=== PATIENT | female | born 1955 | race Caucasian/White ===

== ENCOUNTER 2020-05-12 10:18 | Inpatient (IN) | payer MEDICAID, SELFPAY ==
[~2020-05-12] VITALS: Ht 175.3 cm; Wt 98.9 kg
[2020-05-12 10:22] VITALS: BP_SYST 108
[2020-05-12 12:30] LABS: BASOPHILS % (AUTO) 0.3 % (0.0-2.0); EOSINOPHILS # (AUTO) 0.2 K/uL (0.0-0.4); EOSINOPHILS % (AUTO) 4.9 % (0.0-4.0); HEMOGLOBIN 9.3 g/dL (12.0-16.0); LYMPHOCYTES # (AUTO) 0.5 K/uL (1.0-5.5); LYMPHOCYTES % (AUTO) 14.1 % (20.5-51.5); MEAN CORPUSCULAR HEMOGLOBIN 36 pg (27-31); MEAN CORPUSCULAR HGB CONC 33 % (32-36); MEAN CORPUSCULAR VOLUME 109 fL (79.0-98.0); MONOCYTES # (AUTO) 0.7 K/uL (0.0-1.0); MONOCYTES % (AUTO) 18.1 % (1.7-9.3); NEUTROPHILS # (AUTO) 2.3 K/uL (1.8-7.7); NEUTROPHILS % (AUTO) 62.6 % (40.0-70.0); PLATELET COUNT (AUTO) 80 K/uL (130-430); RED BLOOD CELL COUNT(AUTO) 2.56 MIL/uL (4.2-6.2); RED CELL DISTRIBUTION WIDTH 18.4 % (9.0-15.0); WHITE BLOOD COUNT (AUTO) 3.6 K/uL (4.8-10.8)
[2020-05-12 12:45] LABS: CALCIUM 8.7 mg/dL (8.4-11.0); CREATININE 2.36 mg/dL (0.55-1.30)
[2020-05-12 12:47] LABS: INR 1.9 (0.8-1.2)
[2020-05-12 12:52] LABS: ALBUMIN 1.4 g/dL (3.4-4.8); TOTAL BILIRUBIN 8.5 mg/dL (0.0-1.0)
[2020-05-12 12:58] LABS: PROTHROMBIN TIME 19.2 SECS (9.5-12.5)
[2020-05-12] MEDS ORDERED: HALOPERIDOL LACTATE 5 MG/ML VIAL IM ONE (13:00)
[2020-05-12 13:03] LABS: BILIRUBIN,URINE 1+ (NEGATIVE); CLARITY/URINE CLEAR (CLEAR); COLOR,URINE YELLOW (YELLOW); GLUCOSE,URINE NEGATIVE (NEGATIVE); KETONES,URINE TRACE (NEGATIVE); LEUKOCYTE ESTERASE ,URINE NEGATIVE (NEGATIVE); NITRITE, URINE NEGATIVE (NEGATIVE); PROTEIN URINE NEGATIVE (NEGATIVE)
[2020-05-12 13:48] LABS: BLOOD, URINE TRACE (NEGATIVE); UROBILINOGEN,URINE >=8 (0.2-1.0)
[2020-05-12 13:57] LABS: BACTERIA,URINE FEW /HPF (None Seen); WBC,URINE 0-3 /HPF (0-3)
[2020-05-12] MEDS ORDERED: LACTULOSE 20 GM/30 ML UDC PO ONE (14:45)
[2020-05-12] MEDS ORDERED: LACT10SO6 PO (16:01)
[2020-05-12] MEDS ORDERED: FOLI-43 PO (16:01)
[2020-05-12] MEDS ORDERED: RIFA550T5 PO (16:01)
[2020-05-12] MEDS ORDERED: CAT.1 PO (16:01)
[2020-05-12] MEDS ORDERED: FER300L PO (16:01)
[2020-05-12] MEDS ORDERED: LORA-258 PO (16:01)
[2020-05-12] MEDS ORDERED: ONDA4TAB5 PO (16:01)
[2020-05-12] MEDS ORDERED: CELE200C PO (16:01)
[2020-05-12] MEDS ORDERED: VANC250C11 PO (16:01)
[2020-05-12] MEDS ORDERED: FURO-150 PO (16:01)
[2020-05-12] MEDS ORDERED: DOCU-144 PO (16:01)
[2020-05-12] MEDS: D5/0.45 NS 1,000 ML IV SCH (16:25)
[2020-05-12 18:05] VITALS: BP_SYST 98
[2020-05-12 20:00] VITALS: BP_SYST 107
[2020-05-13] VITALS: BP_SYST 129
[2020-05-13] MEDS: LORazepam 1 MG TABLET PO PRN (00:38)
[2020-05-13 07:31] LABS: BASOPHILS # (AUTO) 0.1 K/uL (0.0-0.2); BASOPHILS % (AUTO) 4.3 % (0.0-2.0); EOSINOPHILS % (AUTO) 1.2 % (0.0-4.0); HEMATOCRIT 26.3 % (36-48); LYMPHOCYTES # (AUTO) 0.4 K/uL (1.0-5.5); LYMPHOCYTES % (AUTO) 13.2 % (20.5-51.5); MEAN CORPUSCULAR HEMOGLOBIN 36 pg (27-31); MEAN CORPUSCULAR HGB CONC 34 % (32-36); MEAN CORPUSCULAR VOLUME 107 fL (79.0-98.0); MONOCYTES # (AUTO) 0.3 K/uL (0.0-1.0); MONOCYTES % (AUTO) 10.1 % (1.7-9.3); NEUTROPHILS # (AUTO) 2.2 K/uL (1.8-7.7); NEUTROPHILS % (AUTO) 71.2 % (40.0-70.0); PLATELET COUNT (AUTO) 81 K/uL (130-430); RED BLOOD CELL COUNT(AUTO) 2.47 MIL/uL (4.2-6.2); RED CELL DISTRIBUTION WIDTH 17.6 % (9.0-15.0); WHITE BLOOD COUNT (AUTO) 3.1 K/uL (4.8-10.8)
[2020-05-13 07:36] LABS: PROTHROMBIN TIME 20.4 SECS (9.5-12.5)
[2020-05-13 07:43] LABS: ALBUMIN 1.4 g/dL (3.4-4.8); CALCIUM 8.6 mg/dL (8.4-11.0); CREATININE 2.05 mg/dL (0.55-1.30); POTASSIUM 4.9 mmol/L (3.5-5.1); TOTAL BILIRUBIN 8.4 mg/dL (0.0-1.0)
[2020-05-13 08:05] VITALS: BP_SYST 111
[2020-05-13] MEDS: LORazepam 2 MG/ML VIAL IVP PRN (11:38)
[2020-05-13 12:47] VITALS: BP_SYST 113
[2020-05-13 16:23] VITALS: BP_SYST 118
[2020-05-13] MEDS: D5/0.45 NS 1,000 ML IV SCH (19:00)
[2020-05-13 20:12] VITALS: BP_SYST 139
[2020-05-14 00:46] VITALS: BP_SYST 139
[2020-05-14] MEDS: LORazepam 2 MG/ML VIAL IVP PRN ×4 (01:34→22:06)
[2020-05-14 06:45] LABS: ALBUMIN 1.6 g/dL (3.4-4.8); CALCIUM 8.8 mg/dL (8.4-11.0); CREATININE 2.09 mg/dL (0.55-1.30); POTASSIUM 4.2 mmol/L (3.5-5.1)
[2020-05-14] MEDS: D5/0.45 NS 1,000 ML IV SCH ×2 (07:31→22:06)
[2020-05-14 08:00] VITALS: BP_SYST 142
[2020-05-14 09:23] LABS: HEMATOCRIT 27.7 % (36-48); HEMOGLOBIN 9.3 g/dL (12.0-16.0); MEAN CORPUSCULAR HEMOGLOBIN 36 pg (27-31); MEAN CORPUSCULAR HGB CONC 34 % (32-36); MEAN CORPUSCULAR VOLUME 108 fL (79.0-98.0); RED BLOOD CELL COUNT(AUTO) 2.56 MIL/uL (4.2-6.2); RED CELL DISTRIBUTION WIDTH 17.6 % (9.0-15.0); WHITE BLOOD COUNT (AUTO) 3.8 K/uL (4.8-10.8)
[2020-05-14 09:33] LABS: PLATELET COUNT (AUTO) 77 K/uL (130-430)
[2020-05-14 10:44] LABS: BASOPHILS % (MANUAL) 0 % (0-2); EOSINOPHILS % (MANUAL) 2 % (0-7); LYMPHOCYTES % (MANUAL) 21 % (20-46); MONOCYTES % (MANUAL) 9 % (0-11)
[2020-05-14 12:03] VITALS: BP_SYST 142
[2020-05-14 16:17] VITALS: BP_SYST 141
[2020-05-14 16:28] LABS: INR 2.1 (0.8-1.2)
[2020-05-14 17:32] LABS: PROTHROMBIN TIME 21.2 SECS (9.5-12.5)
[2020-05-14 18:01] LABS: TOTAL IRON BIND. CAPACITY 134 ug/dL (250-450)
[2020-05-14 19:45] VITALS: BP_SYST 148
[2020-05-14] MEDS: QUEtiapine FUMARATE 25 MG TABLET PO SCH (21:36)
[2020-05-15 00:44] VITALS: BP_SYST 150
[2020-05-15 06:13] LABS: BASOPHILS % (AUTO) 0.5 % (0.0-2.0); EOSINOPHILS # (AUTO) 0.1 K/uL (0.0-0.4); EOSINOPHILS % (AUTO) 3.7 % (0.0-4.0); HEMATOCRIT 26.1 % (36-48); HEMOGLOBIN 8.7 g/dL (12.0-16.0); LYMPHOCYTES # (AUTO) 0.4 K/uL (1.0-5.5); LYMPHOCYTES % (AUTO) 10.2 % (20.5-51.5); MEAN CORPUSCULAR HEMOGLOBIN 36 pg (27-31); MEAN CORPUSCULAR HGB CONC 33 % (32-36); MEAN CORPUSCULAR VOLUME 107 fL (79.0-98.0); MONOCYTES # (AUTO) 0.3 K/uL (0.0-1.0); MONOCYTES % (AUTO) 8.2 % (1.7-9.3); NEUTROPHILS # (AUTO) 3.1 K/uL (1.8-7.7); NEUTROPHILS % (AUTO) 77.4 % (40.0-70.0); PLATELET COUNT (AUTO) 70 K/uL (130-430); RED BLOOD CELL COUNT(AUTO) 2.44 MIL/uL (4.2-6.2); RED CELL DISTRIBUTION WIDTH 17.3 % (9.0-15.0)
[2020-05-15 06:47] LABS: INR 2.1 (0.8-1.2); PROTHROMBIN TIME 21.5 SECS (9.5-12.5)
[2020-05-15 06:51] LABS: ALBUMIN 1.4 g/dL (3.4-4.8); CALCIUM 8.2 mg/dL (8.4-11.0); CREATININE 1.71 mg/dL (0.55-1.30); TOTAL BILIRUBIN 8.3 mg/dL (0.0-1.0)
[2020-05-15 07:08] LABS: TOTAL IRON BIND. CAPACITY 119 ug/dL (250-450)
[2020-05-15 08:00] VITALS: BP_SYST 132
[2020-05-15] MEDS: QUEtiapine FUMARATE 25 MG TABLET PO SCH ×2 (08:02→21:33)
[2020-05-15 11:11] LABS: HEPATITIS A AB, IgM Negative (Negative); HEPATITIS B CORE AB, IgM Negative (Negative); HEPATITIS B SURFACE AG Negative (Negative)
[2020-05-15 12:01] VITALS: BP_SYST 144
[2020-05-15 12:06] LABS: AFP, TUMOR MARKER 1.8 ng/mL (0.0-8.3)
[2020-05-15 16:15] VITALS: BP_SYST 154
[2020-05-15] MEDS: LORazepam 2 MG/ML VIAL IVP PRN (16:50)
[2020-05-15] MEDS: D5/0.45 NS 1,000 ML IV SCH (16:50)
[2020-05-15 20:30] VITALS: BP_SYST 161
[2020-05-16] VITALS (7 sets, daily range): BP systolic 121–165
[2020-05-16] MEDS: LORazepam 2 MG/ML VIAL IVP PRN (04:28)
[2020-05-16] MEDS: ALBUTEROL SULFATE 0.083% 2.5 MG/3 ML VIAL.NEB INH SCH ×5 (08:15→23:38)
[2020-05-16 08:29] LABS: AFP, TUMOR MARKER 1.9 ng/mL (0.0-8.3)
[2020-05-16] MEDS ORDERED: ALBUTEROL SULFATE 0.083% 2.5 MG/3 ML VIAL.NEB INH ONE (09:28)
[2020-05-16 09:30] LABS: CALCIUM 8.3 mg/dL (8.4-11.0); CREATININE 1.57 mg/dL (0.55-1.30); POTASSIUM 4.2 mmol/L (3.5-5.1)
[2020-05-16 09:34] LABS: BASOPHILS # (AUTO) 0.1 K/uL (0.0-0.2); BASOPHILS % (AUTO) 1.2 % (0.0-2.0); EOSINOPHILS # (AUTO) 0.2 K/uL (0.0-0.4); EOSINOPHILS % (AUTO) 5.1 % (0.0-4.0); HEMATOCRIT 31.3 % (36-48); HEMOGLOBIN 10.5 g/dL (12.0-16.0); LYMPHOCYTES # (AUTO) 0.4 K/uL (1.0-5.5); LYMPHOCYTES % (AUTO) 9.2 % (20.5-51.5); MEAN CORPUSCULAR HEMOGLOBIN 36 pg (27-31); MEAN CORPUSCULAR HGB CONC 34 % (32-36); MEAN CORPUSCULAR VOLUME 107 fL (79.0-98.0); MONOCYTES # (AUTO) 0.3 K/uL (0.0-1.0); MONOCYTES % (AUTO) 7.9 % (1.7-9.3); NEUTROPHILS # (AUTO) 3.3 K/uL (1.8-7.7); NEUTROPHILS % (AUTO) 76.6 % (40.0-70.0); PLATELET COUNT (AUTO) 97 K/uL (130-430); RED BLOOD CELL COUNT(AUTO) 2.92 MIL/uL (4.2-6.2); RED CELL DISTRIBUTION WIDTH 16.6 % (9.0-15.0); WHITE BLOOD COUNT (AUTO) 4.3 K/uL (4.8-10.8)
[2020-05-16] MEDS: QUEtiapine FUMARATE 25 MG TABLET PO SCH ×2 (10:24→20:50)
[2020-05-16] MEDS: LACTULOSE 20 GM/30 ML UDC PO SCH ×3 (10:24→17:49)
[2020-05-16] MEDS ORDERED: RIFAXIMIN 550 MG TABLET PO ONE (11:15)
[2020-05-16 12:56] LABS: CEA 10.1 ng/mL (0.0-4.7)
[2020-05-16] MEDS: D5/0.45 NS 1,000 ML IV SCH (20:46)
[2020-05-16] MEDS: RIFAXIMIN 550 MG TABLET PO SCH (20:46)
[2020-05-17] VITALS: BP_SYST 136
[2020-05-17 03:10] LABS: HEPATITIS A AB, IgM Negative (Negative); HEPATITIS B CORE AB, IgM Negative (Negative); HEPATITIS B SURFACE AG Negative (Negative)
[2020-05-17] MEDS: ALBUTEROL SULFATE 0.083% 2.5 MG/3 ML VIAL.NEB INH SCH ×6 (03:35→23:02)
[2020-05-17] MEDS: LACTULOSE 20 GM/30 ML UDC PO SCH ×5 (06:24→23:16)
[2020-05-17 08:15] VITALS: BP_SYST 144
[2020-05-17] MEDS: LORazepam 1 MG TABLET PO PRN ×2 (08:37→21:13)
[2020-05-17] MEDS: RIFAXIMIN 550 MG TABLET PO SCH ×2 (08:37→20:42)
[2020-05-17] MEDS: QUEtiapine FUMARATE 25 MG TABLET PO SCH ×3 (08:37→18:20)
[2020-05-17 11:25] VITALS: BP_SYST 137
[2020-05-17 13:06] LABS: ALPHA-1-ANTITRYPSIN, S 113 mg/dL (101-187); CERULOPLASMIN 18.2 mg/dL (19.0-39.0)
[2020-05-17] MEDS ORDERED: FUROSEMIDE 20 MG/2 ML VIAL IVP ONE (13:30)
[2020-05-17] MEDS: D5/0.45 NS 1,000 ML IV SCH (15:31)
[2020-05-17 15:53] VITALS: BP_SYST 147
[2020-05-17 20:00] VITALS: BP_SYST 135
[2020-05-18] VITALS: BP_SYST 146
[2020-05-18] MEDS: ALBUTEROL SULFATE 0.083% 2.5 MG/3 ML VIAL.NEB INH SCH ×3 (03:00→11:10)
[2020-05-18 04:00] VITALS: BP_SYST 159
[2020-05-18] MEDS: LACTULOSE 20 GM/30 ML UDC PO SCH ×4 (05:06→18:48)
[2020-05-18 06:26] LABS: BASOPHILS # (AUTO) 0.1 K/uL (0.0-0.2); EOSINOPHILS # (AUTO) 0.3 K/uL (0.0-0.4); EOSINOPHILS % (AUTO) 9.6 % (0.0-4.0); HEMATOCRIT 23.4 % (36-48); HEMOGLOBIN 7.8 g/dL (12.0-16.0); LYMPHOCYTES # (AUTO) 0.4 K/uL (1.0-5.5); LYMPHOCYTES % (AUTO) 10.5 % (20.5-51.5); MEAN CORPUSCULAR HEMOGLOBIN 36 pg (27-31); MEAN CORPUSCULAR HGB CONC 33 % (32-36); MEAN CORPUSCULAR VOLUME 108 fL (79.0-98.0); MONOCYTES # (AUTO) 0.4 K/uL (0.0-1.0); MONOCYTES % (AUTO) 11.3 % (1.7-9.3); NEUTROPHILS # (AUTO) 2.2 K/uL (1.8-7.7); NEUTROPHILS % (AUTO) 64.6 % (40.0-70.0); PLATELET COUNT (AUTO) 81 K/uL (130-430); RED BLOOD CELL COUNT(AUTO) 2.16 MIL/uL (4.2-6.2); RED CELL DISTRIBUTION WIDTH 16.6 % (9.0-15.0); WHITE BLOOD COUNT (AUTO) 3.4 K/uL (4.8-10.8)
[2020-05-18 07:50] VITALS: BP_SYST 160
[2020-05-18 08:08] LABS: CALCIUM 7.6 mg/dL (8.4-11.0); CREATININE 1.63 mg/dL (0.55-1.30)
[2020-05-18] MEDS: QUEtiapine FUMARATE 25 MG TABLET PO SCH ×3 (09:28→18:48)
[2020-05-18] MEDS: RIFAXIMIN 550 MG TABLET PO SCH ×2 (09:28→21:46)
[2020-05-18] MEDS: LORazepam 2 MG/ML VIAL IVP PRN ×2 (10:37→17:41)
[2020-05-18] MEDS ORDERED: FUROSEMIDE 40 MG/4 ML VIAL IVP ONE (11:30)
[2020-05-18 12:32] VITALS: BP_SYST 144
[2020-05-18] MEDS: D5/0.45 NS 1,000 ML IV SCH (12:44)
[2020-05-18] MEDS: IPRATROPIUM/ALBUTEROL SULFATE 3 ML AMPUL.NEB (DUONEB) INH SCH ×2 (13:00→20:34)
[2020-05-18] MEDS ORDERED: IPRATROPIUM/ALBUTEROL SULFATE 3 ML AMPUL.NEB (DUONEB) INH PRN (13:00)
[2020-05-18 16:49] VITALS: BP_SYST 137
[2020-05-18 20:01] VITALS: BP_SYST 145
[2020-05-19 01:04] VITALS: BP_SYST 138
[2020-05-19] MEDS: IPRATROPIUM/ALBUTEROL SULFATE 3 ML AMPUL.NEB (DUONEB) INH SCH ×4 (02:14→20:16)
[2020-05-19 07:39] LABS: EOSINOPHILS # (AUTO) 0.3 K/uL (0.0-0.4); EOSINOPHILS % (AUTO) 7.8 % (0.0-4.0); HEMATOCRIT 25.2 % (36-48); HEMOGLOBIN 8.5 g/dL (12.0-16.0); LYMPHOCYTES # (AUTO) 0.3 K/uL (1.0-5.5); LYMPHOCYTES % (AUTO) 6.5 % (20.5-51.5); MEAN CORPUSCULAR HEMOGLOBIN 36 pg (27-31); MEAN CORPUSCULAR HGB CONC 34 % (32-36); MEAN CORPUSCULAR VOLUME 107 fL (79.0-98.0); MONOCYTES # (AUTO) 0.6 K/uL (0.0-1.0); MONOCYTES % (AUTO) 13.8 % (1.7-9.3); NEUTROPHILS % (AUTO) 70.9 % (40.0-70.0); PLATELET COUNT (AUTO) 80 K/uL (130-430); RED BLOOD CELL COUNT(AUTO) 2.35 MIL/uL (4.2-6.2); RED CELL DISTRIBUTION WIDTH 17.4 % (9.0-15.0); WHITE BLOOD COUNT (AUTO) 4.2 K/uL (4.8-10.8)
[2020-05-19 08:16] VITALS: BP_SYST 126
[2020-05-19 08:17] LABS: ALBUMIN 1.3 g/dL (3.4-4.8); CALCIUM 7.5 mg/dL (8.4-11.0); CREATININE 1.54 mg/dL (0.55-1.30); POTASSIUM 3.6 mmol/L (3.5-5.1); TOTAL BILIRUBIN 6.6 mg/dL (0.0-1.0)
[2020-05-19] MEDS: RIFAXIMIN 550 MG TABLET PO SCH ×2 (08:31→21:24)
[2020-05-19] MEDS: QUEtiapine FUMARATE 25 MG TABLET PO SCH ×3 (08:31→18:49)
[2020-05-19 09:48] LABS: ANTI NUCLEAR AB WITH REFLEX Positive (Negative)
[2020-05-19 10:37] VITALS: BP_SYST 126
[2020-05-19 12:36] VITALS: BP_SYST 130
[2020-05-19] MEDS: LACTULOSE 20 GM/30 ML UDC PO SCH ×3 (13:24→18:50)
[2020-05-19 15:56] LABS: ANTI-SMOOTH MUSCLE AB 25 Units (0-19); FERRITIN 604 ng/mL (15-150)
[2020-05-19 15:57] LABS: ANTI-SMOOTH MUSCLE AB 24 Units (0-19); FERRITIN 569 ng/mL (15-150)
[2020-05-19 16:40] VITALS: BP_SYST 137
[2020-05-19 20:30] VITALS: BP_SYST 138
[2020-05-19] MEDS: LORazepam 1 MG TABLET PO PRN (21:24)
[2020-05-20 01:01] VITALS: BP_SYST 118
[2020-05-20] MEDS: IPRATROPIUM/ALBUTEROL SULFATE 3 ML AMPUL.NEB (DUONEB) INH SCH ×4 (01:27→20:40)
[2020-05-20] MEDS: D5/0.45 NS 1,000 ML IV SCH ×3 (02:00→21:12)
[2020-05-20] MEDS: LACTULOSE 20 GM/30 ML UDC PO SCH ×4 (02:01→16:49)
[2020-05-20] MEDS: traMADol HCL HCL 50 MG TABLET (ULTRAM) PO PRN (03:48)
[2020-05-20] MEDS: RIFAXIMIN 550 MG TABLET PO SCH ×2 (08:20→21:12)
[2020-05-20] MEDS: QUEtiapine FUMARATE 25 MG TABLET PO SCH ×3 (08:20→16:48)
[2020-05-20] MEDS: LORazepam 1 MG TABLET PO PRN (08:21)
[2020-05-20 11:35] VITALS: BP_SYST 127
[2020-05-20] MEDS: LORazepam 2 MG/ML VIAL IVP PRN ×2 (15:00→21:13)
[2020-05-20 15:30] VITALS: BP_SYST 145
[2020-05-20 20:00] VITALS: BP_SYST 147
[2020-05-21] MEDS: LACTULOSE 20 GM/30 ML UDC PO SCH ×5 (00:58→23:49)
[2020-05-21 01:10] VITALS: BP_SYST 123
[2020-05-21] MEDS: IPRATROPIUM/ALBUTEROL SULFATE 3 ML AMPUL.NEB (DUONEB) INH SCH ×4 (02:04→20:05)
[2020-05-21] MEDS: LORazepam 2 MG/ML VIAL IVP PRN ×3 (04:03→21:56)
[2020-05-21] MEDS: QUEtiapine FUMARATE 25 MG TABLET PO SCH ×3 (09:56→19:01)
[2020-05-21] MEDS: RIFAXIMIN 550 MG TABLET PO SCH ×2 (09:56→20:01)
[2020-05-21] MEDS: LORazepam 1 MG TABLET PO PRN (11:21)
[2020-05-21 11:28] VITALS: BP_SYST 133
[2020-05-21 15:38] VITALS: BP_SYST 158
[2020-05-21] MEDS: traMADol HCL HCL 50 MG TABLET (ULTRAM) PO PRN (15:48)
[2020-05-21 20:00] VITALS: BP_SYST 142
[2020-05-21] MEDS: D5/0.45 NS 1,000 ML IV SCH (20:01)
[2020-05-22] VITALS: BP_SYST 151
[2020-05-22] MEDS: IPRATROPIUM/ALBUTEROL SULFATE 3 ML AMPUL.NEB (DUONEB) INH SCH ×4 (01:00→19:34)
[2020-05-22] MEDS: LORazepam 2 MG/ML VIAL IVP PRN ×3 (04:37→19:01)
[2020-05-22] MEDS: LACTULOSE 20 GM/30 ML UDC PO SCH ×3 (06:39→19:01)
[2020-05-22 08:00] VITALS: BP_SYST 125
[2020-05-22] MEDS: QUEtiapine FUMARATE 25 MG TABLET PO SCH ×3 (08:56→19:02)
[2020-05-22] MEDS: RIFAXIMIN 550 MG TABLET PO SCH ×2 (08:56→20:42)
[2020-05-22 11:25] VITALS: BP_SYST 141
[2020-05-22 11:31] VITALS: BP_SYST 141
[2020-05-22] MEDS: D5/0.45 NS 1,000 ML IV SCH (13:47)
[2020-05-22] MEDS: traMADol HCL HCL 50 MG TABLET (ULTRAM) PO PRN (13:51)
[2020-05-22 15:25] VITALS: BP_SYST 159
[2020-05-22 20:00] VITALS: BP_SYST 145
[2020-05-23] VITALS: BP_SYST 130
[2020-05-23] MEDS: LACTULOSE 20 GM/30 ML UDC PO SCH ×4 (00:23→18:27)
[2020-05-23] MEDS: traMADol HCL HCL 50 MG TABLET (ULTRAM) PO PRN (02:56)
[2020-05-23] MEDS: D5/0.45 NS 1,000 ML IV SCH (03:52)
[2020-05-23 08:00] VITALS: BP_SYST 120
[2020-05-23] MEDS: RIFAXIMIN 550 MG TABLET PO SCH ×2 (09:00→20:47)
[2020-05-23] MEDS: IPRATROPIUM/ALBUTEROL SULFATE 3 ML AMPUL.NEB (DUONEB) INH SCH ×3 (09:28→19:35)
[2020-05-23] MEDS: QUEtiapine FUMARATE 25 MG TABLET PO SCH ×3 (10:10→18:28)
[2020-05-23] MEDS: LORazepam 2 MG/ML VIAL IVP PRN ×2 (10:11→20:44)
[2020-05-23 11:25] VITALS: BP_SYST 136
[2020-05-23 15:34] VITALS: BP_SYST 123
[2020-05-23 16:40] LABS: BASOPHILS # (AUTO) 0.1 K/uL (0.0-0.2); BASOPHILS % (AUTO) 3.2 % (0.0-2.0); EOSINOPHILS # (AUTO) 0.3 K/uL (0.0-0.4); EOSINOPHILS % (AUTO) 8.6 % (0.0-4.0); HEMOGLOBIN 9.2 g/dL (12.0-16.0); LYMPHOCYTES # (AUTO) 0.4 K/uL (1.0-5.5); MEAN CORPUSCULAR HEMOGLOBIN 36 pg (27-31); MEAN CORPUSCULAR HGB CONC 34 % (32-36); MEAN CORPUSCULAR VOLUME 107 fL (79.0-98.0); MONOCYTES # (AUTO) 0.5 K/uL (0.0-1.0); MONOCYTES % (AUTO) 12.8 % (1.7-9.3); NEUTROPHILS # (AUTO) 2.5 K/uL (1.8-7.7); NEUTROPHILS % (AUTO) 64.4 % (40.0-70.0); PLATELET COUNT (AUTO) 93 K/uL (130-430); RED BLOOD CELL COUNT(AUTO) 2.53 MIL/uL (4.2-6.2); RED CELL DISTRIBUTION WIDTH 17.2 % (9.0-15.0); WHITE BLOOD COUNT (AUTO) 3.9 K/uL (4.8-10.8)
[2020-05-23 17:04] LABS: INR 1.7 (0.8-1.2); PROTHROMBIN TIME 17.3 SECS (9.5-12.5)
[2020-05-23 17:08] LABS: ALANINE AMINOTRANSFERASE 37 U/L (12-78); ALBUMIN 1.3 g/dL (3.4-4.8); ASPARTATE AMINOTRANSFERASE 72 U/L (10-37); CALCIUM 7.6 mg/dL (8.4-11.0); CHLORIDE 110 mmol/L (98-107); CREATININE 1.17 mg/dL (0.55-1.30); GLUCOSE 100 mg/dL (70-99); SODIUM SERUM 139 mmol/L (136-145); TOTAL BILIRUBIN 5.6 mg/dL (0.0-1.0); UREA NITROGEN, BLOOD 17 mg/dL (8-21)
[2020-05-23 17:17] LABS: GFR AFRICAN AMERICAN 60 mL/min (>90)
[2020-05-23 17:19] LABS: ANION GAP < 3 (5-15)
[2020-05-23 20:40] VITALS: BP_SYST 156
[2020-05-24] VITALS: BP_SYST 153
[2020-05-24] MEDS: D5/0.45 NS 1,000 ML IV SCH (02:23)
[2020-05-24] MEDS: LORazepam 2 MG/ML VIAL IVP PRN ×2 (04:26→12:54)
[2020-05-24 04:29] VITALS: BP_SYST 156
[2020-05-24] MEDS: LACTULOSE 20 GM/30 ML UDC PO SCH ×5 (05:00→18:42)
[2020-05-24] MEDS: traMADol HCL HCL 50 MG TABLET (ULTRAM) PO PRN ×2 (05:44→18:48)
[2020-05-24] MEDS: IPRATROPIUM/ALBUTEROL SULFATE 3 ML AMPUL.NEB (DUONEB) INH SCH ×3 (07:21→19:35)
[2020-05-24 08:00] VITALS: BP_SYST 154
[2020-05-24] MEDS: RIFAXIMIN 550 MG TABLET PO SCH ×2 (09:59→23:10)
[2020-05-24] MEDS: QUEtiapine FUMARATE 25 MG TABLET PO SCH ×3 (09:59→18:48)
[2020-05-24 11:27] VITALS: BP_SYST 152
[2020-05-24 15:39] VITALS: BP_SYST 151
[2020-05-25] VITALS: BP_SYST 151
[2020-05-25] MEDS: LORazepam 2 MG/ML VIAL IVP PRN ×2 (00:01→06:51)
[2020-05-25] MEDS: D5/0.45 NS 1,000 ML IV SCH (00:01)
[2020-05-25 06:25] LABS: BASOPHILS # (AUTO) 0.1 K/uL (0.0-0.2); EOSINOPHILS # (AUTO) 0.4 K/uL (0.0-0.4); EOSINOPHILS % (AUTO) 8.8 % (0.0-4.0); HEMATOCRIT 28.9 % (36-48); HEMOGLOBIN 9.9 g/dL (12.0-16.0); LYMPHOCYTES # (AUTO) 0.5 K/uL (1.0-5.5); LYMPHOCYTES % (AUTO) 11.2 % (20.5-51.5); MEAN CORPUSCULAR HEMOGLOBIN 36 pg (27-31); MEAN CORPUSCULAR HGB CONC 34 % (32-36); MEAN CORPUSCULAR VOLUME 106 fL (79.0-98.0); MONOCYTES # (AUTO) 0.4 K/uL (0.0-1.0); MONOCYTES % (AUTO) 10.6 % (1.7-9.3); NEUTROPHILS # (AUTO) 2.8 K/uL (1.8-7.7); NEUTROPHILS % (AUTO) 67.4 % (40.0-70.0); PLATELET COUNT (AUTO) 103 K/uL (130-430); RED BLOOD CELL COUNT(AUTO) 2.73 MIL/uL (4.2-6.2); RED CELL DISTRIBUTION WIDTH 18.1 % (9.0-15.0); WHITE BLOOD COUNT (AUTO) 4.2 K/uL (4.8-10.8)
[2020-05-25] MEDS: LACTULOSE 20 GM/30 ML UDC PO SCH ×4 (06:50→17:17)
[2020-05-25 06:58] LABS: CALCIUM 8.1 mg/dL (8.4-11.0); CREATININE 1.09 mg/dL (0.55-1.30)
[2020-05-25 07:23] VITALS: BP_SYST 146
[2020-05-25] MEDS: IPRATROPIUM/ALBUTEROL SULFATE 3 ML AMPUL.NEB (DUONEB) INH SCH ×3 (07:24→19:51)
[2020-05-25 07:27] LABS: POTASSIUM 3.9 mmol/L (3.5-5.1)
[2020-05-25] MEDS: QUEtiapine FUMARATE 25 MG TABLET PO SCH ×3 (08:36→17:17)
[2020-05-25] MEDS: RIFAXIMIN 550 MG TABLET PO SCH (08:36)
[2020-05-25 08:41] VITALS: BP_SYST 146
[2020-05-25 12:00] VITALS: BP_SYST 148
[2020-05-25 16:17] VITALS: BP_SYST 134
[2020-05-25 16:37] VITALS: BP_SYST 134
== END 2020-05-25 21:22 | DRG 279 ==
LOC: SED 10:18 → STU 15:31 → SMU 05-19 18:23
PROVIDERS: ADMIT Internal Medicine; ATTEND Internal Medicine
DX: K72.90 Hepatic failure, unspecified without coma (principal); D61.818 Other pancytopenia; K74.69 Other cirrhosis of liver; B18.2 Chronic viral hepatitis C; D68.9 Coagulation defect, unspecified; I25.10 Atherosclerotic heart disease of native coronary artery without angina pectoris; J44.9 Chronic obstructive pulmonary disease, unspecified; X58.XXXA Exposure to other specified factors, initial encounter; K74.60 Unspecified cirrhosis of liver; S42.211A Unspecified displaced fracture of surgical neck of right humerus, initial encounter for closed fracture; N18.9 Chronic kidney disease, unspecified; Z78.1 Physical restraint status; F29 Unspecified psychosis not due to a substance or known physiological condition; N26.1 Atrophy of kidney (terminal); J45.909 Unspecified asthma, uncomplicated; Z20.828 Contact with and (suspected) exposure to other viral communicable diseases; Z79.899 Other long term (current) drug therapy; Z88.5 Allergy status to narcotic agent; Z88.0 Allergy status to penicillin; Y93.89 Activity, other specified; Y92.89 Other specified places as the place of occurrence of the external cause; Y99.8 Other external cause status; R64 Cachexia
CPT/HCPCS: 36415; 70450-TC; 71045; 76700-TC; 80048; 80053; 80074; 81000-TC; 82103; 82105; 82140-TC; 82378; 82390; 82728; 83516; 83540-TC; 83550-TC; 85007; 85025; 85027; 85610-TC; 85730-TC; 86038; 87081; 87086; 93005; 94640; 94760; 96360; 96372; 99285; G0378; J1630; J1940; J2060; J7613